=== PATIENT | female | born 1940 | race Two or more races ===

== ENCOUNTER → 2018-04-12 | Outpatient (CLI) | payer MEDICARE, BC, OTHER ==
--- NOTE | 2018-04-12 15:56 | KCIC ---
Examination: ELBOW LEFT 3V History: Golfers elbow. Medial left elbow pain and swelling. Comparison/Correlation: None Findings: Total of 4 images of the left elbow were obtained. The joint spaces are unremarkable for age. Mild spurring noted. No fracture or bone destruction. No joint effusion. Impression: Mild degenerative change consistent with age. Electronically signed by: Ammon Mcmullen MD (04/12/2018 3:53 PM) [facility]
== END | disposition home or self-care (01) ==
LOC: KCIC 11:43
PROVIDERS: ATTEND Internal Medicine Rheumatology
DX: M19.022 Primary osteoarthritis, left elbow (principal); M77.02 Medial epicondylitis, left elbow
CPT/HCPCS: 73080

== ENCOUNTER → 2021-02-16 | Outpatient (CLI) | payer MEDICARE, BC, OTHER ==
[~2021-02-16] MED LIST: LOSA100T14 PO
[2021-02-16 14:06] LABS: BASO # 0.1 x10^3/uL (0.0-0.2); BASO % 1 % (0-3); EOS # 0.1 x10^3/uL (0.0-0.7); EOS % 2 % (0-3); HEMATOCRIT 36.1 % (36.0-47.0); LYMPH # 0.8 x10^3/uL (1.0-4.8); LYMPH % 13 % (24-48); MEAN CORPUSCULAR HEMOGLOBIN 29 pg (25-35); MEAN CORPUSCULAR HGB CONC 33 g/dL (31-37); MEAN CORPUSCULAR VOLUME 88 fL (79-100); MONO # 0.4 x10^3/uL (0.0-1.1); MONO % 6 % (0-9); NEUT # 4.7 x10^3/uL (1.8-7.7); NEUT % 77 % (31-73); PLATELET COUNT 335 x10^3/uL (140-400); RED BLOOD COUNT 4.09 x10^6/uL (3.50-5.40); RED CELL DISTRIBUTION WIDTH 14.5 % (11.5-14.5)
[2021-02-16 14:08] LABS: CALCIUM 9.4 mg/dL (8.5-10.1); CREATININE 0.8 mg/dL (0.6-1.0); POTASSIUM 3.8 mmol/L (3.5-5.1)
--- NOTE | 2021-02-16 14:12 | EKG ---
[facility] [address] [place] [address] Test Date: 2021-02-16 Test Time: 14:09:27 Pat Name: TARSHA COLE Department: Room: Gender: F [employer]: SUSHIL : 1940 Requested By: JANICE BUTTS Order Number: [id number] Reading MD: Alli De Los Santos Measurements Intervals [place] Rate: 79 P: 33 DE: 186 QRS: 10 QRSD: 80 T: 13 QT: 368 QTc: 423 Interpretive Statements SINUS RHYTHM LEFT ATRIAL ABNORMALITY NON SPECIFIC T WAVE CHANGES RI6.02 No previous ECG available for comparison Electronically Signed On 02-16-2021 17:13:53 CDT by Alli De Los Santos
[2021-02-16 14:17] LABS: PROTHROMBIN TIME PATIENT 12.9 SEC (11.7-14.0)
--- NOTE | 2021-02-16 15:11 | RAD ---
EXAM: Chest, 2 views. HISTORY: Arthroplasty. Preoperative evaluation. COMPARISON: None. FINDINGS: 2 views of the chest are obtained. There is linear atelectasis or scarring within the lingu la and bilateral lung bases. There is no consolidation, pleural effusion or pneumothorax. The heart i s normal in size. A tortuous thoracic aorta. There are right axillary clips. IMPRESSION: Chronic appearing interstitial changes. No acute pulmonary finding. Electronically signed by: Lucretia Perez MD (02/16/2021 3:09 PM) [id number]
[2021-02-17 01:25] LABS: HEMOGLOBIN A1C 5.3 % (4.8-5.6)
== END ==
LOC: SURGPAT 13:11
PROVIDERS: ATTEND Orthopaedic Surgery
DX: Z01.818 Encounter for other preprocedural examination (principal); J84.9 Interstitial pulmonary disease, unspecified; J98.11 Atelectasis; Q25.46 Tortuous aortic arch
CPT/HCPCS: 36415; 71046; 80048; 82040; 82306; 83036; 85025; 85610; 85651; 85730; 87641; 93005

== ENCOUNTER → 2021-05-25 | Outpatient (CLI) | payer MEDICARE, BC, OTHER ==
[2021-03-05 18:29] VITALS: BP 136/86
[~2021-05-25] MED LIST changes: +OXYC5CAP PO; +TRAM50TA PO
--- NOTE | 2021-05-25 14:42 | KCIC ---
EXAMINATION: Magnetic resonance imaging (MRI) of the cervical spine without contrast 05/25/2021 10:25 AM HISTORY: Neck pain. Bilateral radicular pain of the upper extremity TECHNIQUE: Multiplanar multi-weighted MRI of the cervical spine was performed without intravenous con trast using the standard cervical spine protocol. Contrast information: None administered COMPARISON: None available. FINDINGS: There is straightening of the normal cervical lordosis with kyphosis centered at C4-C5. There is 3 mm anterolisthesis of C7 on T1. There is moderate disc height loss at C4-C5 and mild disc height loss a t C5-C6 and C6-C7. Disc desiccation is identified all levels of the cervical spine. Marrow signal int ensity is normal in all sequences and low signal on T1-weighted images may reflect red marrow hyperpl harley as may be seen with chronic anemia, obesity or smoking history. Craniocervical junction is jose l. Vertebral artery flow voids are maintained. No acute fracture. Cervical spinal cord signal intensi ty is normal on all sequences. There is no paraspinal soft tissue abnormality. There is no prevertebr al edema. C2-C3: The disk is normal in configuration. There is mild left facet arthropathy. There is no uncove rtebral joint disease. There is no neuroforaminal stenosis. There is no spinal canal stenosis. C3-C4: There is a posterior disc osteophyte complex with left central disc extrusion extending to the left neural foramen. Moderate left facet arthropathy. Mild left uncovertebral joint disease. Moderat e severe left neural foraminal stenosis. Mild spinal canal stenosis without deformity of the cord or cord signal alteration. C4-C5: There is a posterior disc osteophyte complex. Moderate left facet arthropathy. Moderate left a nd moderate uncovertebral joint disease. Moderate left neuroforaminal stenosis. Mild spinal canal kim nosis with mild deformity ventral cord. No cord signal alteration. Tortuous course of the right verte bral artery at this level which extends adjacent to the right neural foramen. C5-C6: There is a posterior disc osteophyte complex asymmetric to the left. Mild facet arthropathy. M oderate left uncovertebral joint disease. Mild right uncovertebral joint disease. Moderate left and m ild right neuroforaminal stenosis. Mild spinal canal stenosis without deformity of cord or cord signa l alteration. C6-C7: There is mild disc bulge. No significant facet or uncovertebral joint disease. No neuroforamin al or spinal canal stenosis. C7-T1: There is uncovering of the disc secondary to anterolisthesis. No neuroforaminal or spinal muriel l stenosis. T1-T2: There is a disc bulge asymmetric to the left. Mild left neuroforaminal stenosis. IMPRESSION: Mild to moderate degenerative changes of the cervical spine as described in detail above. IMPRESSION: Mild degenerative changes of the cervical spine as described in detail above. Electronically signed by: Jennifer Pantoja MD (05/25/2021 2:40 PM) [facility]
== END ==
LOC: KCIC MRI 09:38
PROVIDERS: ATTEND Physician Assistant
DX: M47.812 Spondylosis without myelopathy or radiculopathy, cervical region (principal); M51.24 Other intervertebral disc displacement, thoracic region; M50.223 Other cervical disc displacement at C6-C7 level; M48.8X2 Other specified spondylopathies, cervical region; M48.02 Spinal stenosis, cervical region; M40.292 Other kyphosis, cervical region; M43.13 Spondylolisthesis, cervicothoracic region; M50.90 Cervical disc disorder, unspecified, unspecified cervical region; M79.2 Neuralgia and neuritis, unspecified; M43.8X2 Other specified deforming dorsopathies, cervical region
CPT/HCPCS: 72141